=== PATIENT | male | born 1950 | race Hispanic/Latino ===

== ENCOUNTER 2020-04-02 15:12 | Outpatient (CLI) | payer OTHER ==
--- NOTE | 2020-04-02 16:17 | ULT ---
US Kidney Transplanted: 04/02/2020 3:13 PM CLINICAL HISTORY: Status post kidney transplant for kidney failure. STUDY: Renal and transplant renal ultrasound COMPARISON: None. FINDINGS: [place] Right kidney: Echogenicity: Increased. Masses/cysts: None. Hydronephrosis: None. Calcifications: None. Length: 8.2 cm [place] Left kidney: Echogenicity: Increased. Masses/cysts: None. Hydronephrosis: None. Calcifications: None. Length: 10.3 cm Transplant kidney in the pelvis: Echogenicity: Normal. Masses/cysts: None. Hydronephrosis: None. Calcifications: None. Length: 12.7 cm The resistive indices of the transplant kidney are normal. Peak systolic velocity in the transplant r enal artery is 38 cm/s. Limited visualization of the urinary bladder is unremarkable. IMPRESSION: 1. No significant abnormality of the transplant kidney 2. Echogenic [place] kidneys are secondary to chronic renal failure.
== END 2020-04-02 15:13 | disposition home or self-care (01) ==
LOC: BICULT 15:12
PROVIDERS: ATTEND Internal Medicine Nephrology
DX: I12.9 Hypertensive chronic kidney disease with stage 1 through stage 4 chronic kidney disease, or unspecified chronic kidney disease (principal); N18.30 Chronic kidney disease, stage 3 unspecified; R10.9 Unspecified abdominal pain
CPT/HCPCS: 76775

== ENCOUNTER 2020-06-22 15:39 | Outpatient (CLI) | payer OTHER ==
[2020-06-23 02:12] LABS: SARS-CoV-2 PCR by NAA Not Detected (NotDetected)
== END 2020-06-22 15:40 | disposition home or self-care (01) ==
LOC: LABBT 15:39
PROVIDERS: ATTEND Ophthalmology Retina Specialist
DX: Z01.812 Encounter for preprocedural laboratory examination (principal); H43.12 Vitreous hemorrhage, left eye; Z20.822 Contact with and (suspected) exposure to COVID-19
CPT/HCPCS: 87635; U0003; U0005

== ENCOUNTER 2020-06-25 05:47 | Day surgery (SDC) | payer OTHER ==
[2020-06-24 12:20] VITALS: BMI 27.4
[2020-06-25] MEDS ORDERED: Cyclopentolate 1% Opth Drop 2 ML BOT ONE (05:57)
[2020-06-25] MEDS ORDERED: Phenylephrine 2.5% Ophth Soln 5 ML BOT ONE (05:57)
[2020-06-25] MEDS ORDERED: Phenylephrine 2.5% Ophth Soln 5 ML BOT L EYE SCH (06:00)
[2020-06-25] MEDS ORDERED: EPINEPHrine 0.3 MG in Ophthalmic Irrigation Solution 500 ML IRR SCH (06:00)
[2020-06-25] MEDS ORDERED: Cyclopentolate 1% Opth Drop 2 ML BOT L EYE SCH (06:00)
[2020-06-25] MEDS ORDERED: Fentanyl 100 MCG/2 ML VIAL ONE (06:20)
[2020-06-25] MEDS ORDERED: Midazolam HCl 2 mg/2 ml Vial ONE (06:20)
[2020-06-25] MEDS ORDERED: CEFAZOLIN 1 GM VIAL ONE (07:04)
[2020-06-25] MEDS ORDERED: Bupivacaine PF 0.75% SDV 10 ML ONE (07:04)
[2020-06-25] MEDS ORDERED: Maxitrol 0.1% Opth Oint 3.5 GM TUBE ONE (07:04)
[2020-06-25] MEDS ORDERED: Lidocaine 4% PF 5 ML AMP ONE (07:04)
[2020-06-25] MEDS ORDERED: PROPOFOL 200 MG/20 ML VIAL ONE (07:04)
[2020-06-25] MEDS ORDERED: Lidocaine 1% PF 5 ML VIAL ONE (07:04)
[2020-06-25] MEDS ORDERED: Triamcinolone 40 MG/ML VIAL ONE (07:04)
== END 2020-06-25 09:15 | disposition home or self-care (01) ==
LOC: SDC 05:47
PROVIDERS: ATTEND Ophthalmology Retina Specialist
PROC: 08NF3ZZ Release Left Retina, Percutaneous Approach (ICD-10-PCS; principal; 2020-06-25)
PROC: 08T53ZZ Resection of Left Vitreous, Percutaneous Approach (ICD-10-PCS; principal; 2020-06-25)
DX: H43.12 Vitreous hemorrhage, left eye (principal); H35.372 Puckering of macula, left eye; E11.9 Type 2 diabetes mellitus without complications; Z79.4 Long term (current) use of insulin; Z79.82 Long term (current) use of aspirin; Z79.899 Other long term (current) drug therapy; Z94.0 Kidney transplant status
CPT/HCPCS: 36416; J0171; J0690; J2250; J2704; J3010; J3301; J3490

== ENCOUNTER 2023-07-11 17:22 | Inpatient (IN) | payer OTHER ==
[2023-07-11 17:54] VITALS: BMI 26.1
[2023-07-11] MEDS: Sodium Chloride 0.9% 1,000 ML IV SCH (18:33)
[2023-07-11] MEDS ORDERED: Dextrose 5% in Water 1,000 ML IV PRN (18:58)
[2023-07-11] MEDS ORDERED: Ondansetron ODT 4 MG TAB PO PRN (18:58)
[2023-07-11] MEDS ORDERED: Glucagon 1 MG/ML KIT IM PRN (18:58)
[2023-07-11] MEDS ORDERED: Ondansetron PF 4 MG/2 ML Vial IVP PRN (18:58)
[2023-07-11] MEDS ORDERED: Dextrose 50% Abboject 50 ML SYRINGE SLOW IVP PRN (18:58)
[2023-07-11] MEDS ORDERED: Vancomycin 1 GM in Premix 1 BAG IVPB SCH (21:00)
[2023-07-11] MEDS: Clindamycin/D5W 900 MG in Premix 1 BAG IVPB SCH (21:36)
[2023-07-11] MEDS: Acetaminophen 325 MG TAB PO PRN (21:39)
[2023-07-11] MEDS: HumaLOG 300 UNITS/3 ML VIAL SC PRN (22:16)
[2023-07-12] MEDS: Cefepime 2 GM in Sodium Chloride 0.9% 100 ML IVPB SCH (05:18)
[2023-07-12 06:16] LABS: #Basophils 0.03 10x3/uL (0.0-0.2); %Basophils 0.2 % (0.0-1.0); %Eosinophils 2.2 % (0.0-10.0); %Monocytes 8.5 % (0.0-10.0); %Neutrophils 71.6 % (42.0-75.0); Hematocrit 38.4 % (42.0-52.0); Hemoglobin 12.9 g/dL (14.0-18.0); Mean Corpuscular HGB CONC 33.6 g/dL (32.0-36.0); Mean Corpuscular Hemoglobin 29.9 pg (27.0-31.0); Mean Corpuscular Volume 88.9 fL (78.0-98.0); Mean Platelet Volume 10.8 fL (7.4-10.4); Platelet Count 152 10x3/uL (130-400); RBC Distribution Width 12.9 % (11.5-14.5); Red Blood Cell (RBC) Count 4.32 mill/uL (4.70-6.10)
[2023-07-12 06:28] LABS: Anion Gap 13 mmol/L (10-20); BUN (Urea Nitrogen) 31 mg/dL (8.4-25.7); Calc. Creatinine Clearance 74 mL/min (70-130); Calcium 9.1 mg/dL (7.8-10.44); Carbon Dioxide 20 mmol/L (23-31); Chloride 106 mmol/L (98-107); Estimated GFR 87; Glucose 266 mg/dL (80-115); Potassium 4.6 mmol/L (3.5-5.1); Sodium 134 mmol/L (136-145)
[2023-07-12 06:30] LABS: Vancomycin, Random 13.1 ug/mL (See Comment)
[2023-07-12] MEDS ORDERED: Vancomycin (BATCH) 1.25 GM in Premix 1 BAG IVPB SCH (16:00)
[2023-07-12] MEDS: Vancomycin (BATCH) 1.5 GM in Premix 1 BAG IVPB SCH (16:07)
[2023-07-12] MEDS: Losartan 25 MG TAB PO SCH (16:46)
[2023-07-12] MEDS: Hydrochlorothiazide 25 MG TAB PO SCH (16:46)
[2023-07-12] MEDS: Cefepime 1 GM in Sodium Chloride 0.9% 100 ML IVPB SCH (16:48)
[2023-07-12] MEDS: hydrALAZINE 20 MG/ML VIAL SLOW IVP SCH (20:43)
[2023-07-12] MEDS: Atorvastatin Calcium 20 MG TAB PO SCH (20:43)
[2023-07-12] MEDS: HumaLOG 300 UNITS/3 ML VIAL SC PRN (20:44)
[2023-07-12] MEDS ORDERED: Non-Formulary Item 1 EACH (Insulin Nph Hum/Reg Insulin Hm [Novolin 70-30 Flexpen] 100 UNI SC SCH (21:00)
[2023-07-13] MEDS: hydrALAZINE 20 MG/ML VIAL SLOW IVP SCH (04:30)
[2023-07-13 07:18] LABS: #Basophils 0.03 10x3/uL (0.0-0.2); %Basophils 0.3 % (0.0-1.0); %Eosinophils 3.8 % (0.0-10.0); %Lymphocytes 19.1 % (21.0-51.0); %Monocytes 9.6 % (0.0-10.0); %Neutrophils 66.8 % (42.0-75.0); Hematocrit 35.8 % (42.0-52.0); Hemoglobin 12.2 g/dL (14.0-18.0); Mean Corpuscular HGB CONC 34.1 g/dL (32.0-36.0); Mean Corpuscular Hemoglobin 30.7 pg (27.0-31.0); Mean Corpuscular Volume 90.2 fL (78.0-98.0); Mean Platelet Volume 10.6 fL (7.4-10.4); Platelet Count 162 10x3/uL (130-400); RBC Distribution Width 12.7 % (11.5-14.5); Red Blood Cell (RBC) Count 3.97 mill/uL (4.70-6.10)
[2023-07-13 07:56] LABS: Vancomycin, Random 13.2 ug/mL (See Comment)
[2023-07-13 08:00] LABS: Anion Gap 12 mmol/L (10-20); BUN (Urea Nitrogen) 34 mg/dL (8.4-25.7); Calc. Creatinine Clearance 67 mL/min (70-130); Calcium 8.6 mg/dL (7.8-10.44); Carbon Dioxide 17 mmol/L (23-31); Chloride 109 mmol/L (98-107); Estimated GFR 77; Glucose 304 mg/dL (80-115); Potassium 4.6 mmol/L (3.5-5.1); Sodium 133 mmol/L (136-145)
[2023-07-13] MEDS: Losartan 25 MG TAB PO SCH (08:42)
[2023-07-13] MEDS: Hydrochlorothiazide 25 MG TAB PO SCH (08:42)
[2023-07-13] MEDS: Aspirin Chewable 81 MG TAB PO SCH (08:42)
[2023-07-13] MEDS: HumuLIN 70/30 (300 UNITS/3 ML VIAL) SC SCH (16:08)
[2023-07-13] MEDS ORDERED: HumuLIN 70/30 (300 UNITS/3 ML VIAL) SC SCH (16:30)
[2023-07-13 18:06] LABS: Glucose POC Confirmation 360 mg/dL (83-110)
[2023-07-14] MEDS: hydrALAZINE 25 MG TAB PO SCH ×2 (00:52→00:59)
[2023-07-14 05:26] LABS: #Basophils 0.03 10x3/uL (0.0-0.2); %Basophils 0.3 % (0.0-1.0); %Eosinophils 5.5 % (0.0-10.0); %Lymphocytes 25.1 % (21.0-51.0); %Monocytes 8.5 % (0.0-10.0); %Neutrophils 60.2 % (42.0-75.0); Hematocrit 35.8 % (42.0-52.0); Hemoglobin 12.3 g/dL (14.0-18.0); Mean Corpuscular HGB CONC 34.4 g/dL (32.0-36.0); Mean Corpuscular Hemoglobin 30.8 pg (27.0-31.0); Mean Corpuscular Volume 89.5 fL (78.0-98.0); Mean Platelet Volume 10.6 fL (7.4-10.4); Platelet Count 173 10x3/uL (130-400); RBC Distribution Width 12.6 % (11.5-14.5)
[2023-07-14 05:41] LABS: Anion Gap 14 mmol/L (10-20); BUN (Urea Nitrogen) 34 mg/dL (8.4-25.7); Calc. Creatinine Clearance 82 mL/min (70-130); Calcium 9.1 mg/dL (7.8-10.44); Carbon Dioxide 18 mmol/L (23-31); Chloride 107 mmol/L (98-107); Estimated GFR 94; Glucose 153 mg/dL (80-115); Potassium 4.3 mmol/L (3.5-5.1); Sodium 135 mmol/L (136-145)
[2023-07-14] MEDS: HumuLIN 70/30 (300 UNITS/3 ML VIAL) SC SCH (08:19)
[2023-07-14 11:38] VITALS: BP 148/73; TEMP 98.5
[2023-07-14] MEDS: HumaLOG 300 UNITS/3 ML VIAL SC PRN (12:02)
[2023-07-14] MEDS ORDERED: Cefepime 2 GM in Sodium Chloride 0.9% 100 ML IVPB SCH (17:00)
== END 2023-07-14 15:07 | disposition home or self-care (01) | DRG 603 ==
LOC: T4-B 17:22 → INTOOBSV 17:22 → OBSVTOIN 07-12 15:33
PROVIDERS: ADMIT Internal Medicine; ATTEND Hospitalist
DX: L03.114 Cellulitis of left upper limb (principal); Z94.0 Kidney transplant status; E78.5 Hyperlipidemia, unspecified; E11.22 Type 2 diabetes mellitus with diabetic chronic kidney disease; I12.9 Hypertensive chronic kidney disease with stage 1 through stage 4 chronic kidney disease, or unspecified chronic kidney disease; N18.9 Chronic kidney disease, unspecified; Z66 Do not resuscitate; J02.9 Acute pharyngitis, unspecified; S61.532A Puncture wound without foreign body of left wrist, initial encounter; Z79.4 Long term (current) use of insulin; Z79.899 Other long term (current) drug therapy; Z79.82 Long term (current) use of aspirin
CPT/HCPCS: 36415; 36416; 80048; 80202; 85025; 96374; 96375; 96376; G0378; J0360; J0692; J1815; J3370; J3490; J7050

== ENCOUNTER 2024-09-10 01:11 | Inpatient (IN) | payer OTHER ==
[2024-09-10 02:09] VITALS: BMI 25.0
[2024-09-10] MEDS ORDERED: Ketorolac Tromethamine 30 MG (1 mL) VIAL IVP PRN (02:18)
[2024-09-10] MEDS ORDERED: Glucagon 1 MG/ML KIT IM PRN (02:45)
[2024-09-10] MEDS ORDERED: Dextrose 50% Abboject 50 ML SYRINGE SLOW IVP PRN (02:45)
[2024-09-10 03:24] LABS: Hematocrit 32.7 % (42.0-52.0); Hemoglobin 11.0 g/dL (14.0-18.0); Mean Corpuscular Hemoglobin 30.1 pg (27.0-31.0); Mean Corpuscular Volume 89.3 fL (78.0-98.0); Platelet Count 159 10x3/uL (130-400); Red Blood Cell (RBC) Count 3.66 mill/uL (4.70-6.10); White Blood Cell (WBC) Count 36.22 10x3/uL (4.8-10.8)
[2024-09-10 03:39] LABS: Anion Gap 15 mmol/L (10-20); BUN (Urea Nitrogen) 48 mg/dL (8.4-25.7); Calc. Creatinine Clearance 29 mL/min (70-130); Calcium 8.0 mg/dL (7.8-10.44); Carbon Dioxide 17 mmol/L (23-31); Chloride 106 mmol/L (98-107); Glucose 160 mg/dL (83-110); Potassium 3.9 mmol/L (3.5-5.1); Sodium 134 mmol/L (136-145)
[2024-09-10 03:44] LABS: Anisocytosis SLIGHT = 6-15 cells HPF (0-5); Platelet Adequacy Comment Platelets Normal; Polychromasia SLIGHT = 2-3 cells HPF (0-2)
[2024-09-10 07:21] LABS: ALT (SGPT) 54 U/L (Less than 45); AST (SGOT) 36 U/L (11-34); Albumin 1.9 g/dL (3.1-4.5); Alkaline Phosphatase 235 U/L (40-110); Bilirubin, Direct 1.3 mg/dL (0.1-0.3); Bilirubin, Total 1.8 mg/dL (0.3-1.2)
[2024-09-10] MEDS: Hydrocortisone Sod Succ/PF 100 mg/2 ml Vial IVP SCH (16:05)
[2024-09-10] MEDS: Acetaminophen 325 MG TAB PO PRN (20:17)
[2024-09-11 05:10] LABS: Anion Gap 18 mmol/L (10-20); BUN (Urea Nitrogen) 75 mg/dL (8.4-25.7); Calc. Creatinine Clearance 21 mL/min (70-130); Calcium 8.1 mg/dL (7.8-10.44); Carbon Dioxide 12 mmol/L (23-31); Chloride 108 mmol/L (98-107); Glucose 298 mg/dL (83-110); Potassium 4.6 mmol/L (3.5-5.1); Sodium 133 mmol/L (136-145)
[2024-09-11 05:15] LABS: ALT (SGPT) 56 U/L (Less than 45); AST (SGOT) 50 U/L (11-34); Albumin 1.9 g/dL (3.1-4.5); Alkaline Phosphatase 217 U/L (40-110); Bilirubin, Direct 1.0 mg/dL (0.1-0.3); Bilirubin, Total 1.4 mg/dL (0.3-1.2)
[2024-09-11 05:24] LABS: Hematocrit 37.1 % (42.0-52.0); Hemoglobin 11.7 g/dL (14.0-18.0); Mean Corpuscular Hemoglobin 29.5 pg (27.0-31.0); Mean Corpuscular Volume 93.7 fL (78.0-98.0); Platelet Count 200 10x3/uL (130-400); Red Blood Cell (RBC) Count 3.96 mill/uL (4.70-6.10); White Blood Cell (WBC) Count 30.39 10x3/uL (4.8-10.8)
[2024-09-11 05:56] LABS: Platelet Adequacy Comment Platelets Normal; Poikilocytosis SLIGHT = 6-15 cells HPF (0-5); Smudge Cells 1.0 %
[2024-09-11] MEDS ORDERED: Sodium Bicarbonate Tab 325 MG TAB PO SCH (09:00)
[2024-09-11] MEDS: Pantoprazole 40 MG VIAL IVP SCH (12:07)
[2024-09-11] MEDS ORDERED: Bupivacaine 0.25% HCL 30 ML VIAL ONE (13:03)
[2024-09-11] MEDS ORDERED: fentaNYL PF 100 MCG/2 ML SYRINGE ONE (13:10)
[2024-09-11] MEDS ORDERED: PROPOFOL 20 ML ONE (13:10)
[2024-09-11] MEDS ORDERED: Rocuronium Bromide 10 MG/ML (10ML VIAL) ONE (13:10)
[2024-09-11] MEDS ORDERED: CEFAZOLIN 2 GM VIAL ONE (14:21)
[2024-09-11] MEDS ORDERED: Ondansetron PF 4 MG/2 ML Vial ONE (14:49)
[2024-09-11] MEDS ORDERED: PHENYLEPHRINE-NS 100 MCG/ML 10 ML SYRINGE ONE (15:29)
[2024-09-11] MEDS ORDERED: SUGAMMADEX SODIUM 200 MG/2 ML VIAL ONE (16:08)
[2024-09-11] MEDS ORDERED: HYDROcodone/Acetaminophen 10/325 mg Tablet PO PRN (16:25)
[2024-09-11] MEDS ORDERED: Glucagon 1 MG/ML KIT IM PRN (16:25)
[2024-09-11] MEDS ORDERED: Dextrose 50% Abboject 50 ML SYRINGE SLOW IVP PRN (16:25)
[2024-09-11] MEDS ORDERED: Calcium Carbonate 500 MG ChewTAB PO PRN (16:25)
[2024-09-11] MEDS ORDERED: D5 1/2 NS w/20 mEq KCL 1,000 ML IV SCH (16:30)
[2024-09-11 19:10] LABS: Anion Gap 23 mmol/L (10-20); BUN (Urea Nitrogen) 86 mg/dL (8.4-25.7); Calc. Creatinine Clearance 17 mL/min (70-130); Calcium 8.0 mg/dL (7.8-10.44); Carbon Dioxide 10 mmol/L (23-31); Chloride 107 mmol/L (98-107); Glucose 369 mg/dL (83-110); Potassium 4.6 mmol/L (3.5-5.1); Sodium 135 mmol/L (136-145)
[2024-09-11] MEDS: CALCIUM GLUC 1 GM/NS 50 ML 1 GM in Premix 1 BAG IVPB SCH (20:02)
[2024-09-11] MEDS: Calcium Carbonate 500 MG ChewTAB PO SCH (20:03)
[2024-09-11] MEDS: Famotidine 20 MG TAB PO SCH (20:03)
[2024-09-11] MEDS: Ondansetron PF 4 MG/2 ML Vial IVP PRN (22:09)
[2024-09-12 04:36] LABS: Hematocrit 39.2 % (42.0-52.0); Hemoglobin 12.4 g/dL (14.0-18.0); Mean Corpuscular Hemoglobin 28.9 pg (27.0-31.0); Mean Corpuscular Volume 91.4 fL (78.0-98.0); Platelet Count 248 10x3/uL (130-400); Red Blood Cell (RBC) Count 4.29 mill/uL (4.70-6.10); White Blood Cell (WBC) Count 29.46 10x3/uL (4.8-10.8)
[2024-09-12 04:42] LABS: ALT (SGPT) 74 U/L (Less than 45); AST (SGOT) 114 U/L (11-34); Albumin 1.9 g/dL (3.1-4.5); Alkaline Phosphatase 198 U/L (40-110); Bilirubin, Direct 0.5 mg/dL (0.1-0.3); Bilirubin, Total 0.8 mg/dL (0.3-1.2)
[2024-09-12 04:49] LABS: Anion Gap 22 mmol/L (10-20); BUN (Urea Nitrogen) 91 mg/dL (8.4-25.7); Calc. Creatinine Clearance 15 mL/min (70-130); Calcium 8.1 mg/dL (7.8-10.44); Carbon Dioxide 10 mmol/L (23-31); Chloride 104 mmol/L (98-107); Glucose 485 mg/dL (83-110); Magnesium 2.2 mg/dL (1.6-2.6); Potassium 4.9 mmol/L (3.5-5.1); Sodium 131 mmol/L (136-145)
[2024-09-12 05:33] LABS: Platelet Adequacy Comment Platelets Normal
[2024-09-12] MEDS ORDERED: Pantoprazole 40 MG VIAL IVP SCH (09:00)
[2024-09-12] MEDS ORDERED: DEXTROSE 5% IV SCH (11:30)
[2024-09-12] MEDS ORDERED: SODIUM BICARBONATE IV SCH (11:30)
[2024-09-12] MEDS ORDERED: WATER IV SCH (11:30)
[2024-09-12 11:52] LABS: Anion Gap 18 mmol/L (10-20); BUN (Urea Nitrogen) 100 mg/dL (8.4-25.7); Calc. Creatinine Clearance 14 mL/min (70-130); Calcium 7.5 mg/dL (7.8-10.44); Carbon Dioxide 15 mmol/L (23-31); Chloride 100 mmol/L (98-107); Glucose 604 mg/dL (83-110); Potassium 4.3 mmol/L (3.5-5.1); Sodium 129 mmol/L (136-145)
[2024-09-12] MEDS: Sodium Bicarbonate Tab 325 MG TAB PO SCH ×2 (12:05→14:48)
[2024-09-12 12:51] VITALS: BP 161/82
[2024-09-12 15:28] LABS: Anion Gap 17 mmol/L (10-20); BUN (Urea Nitrogen) 92 mg/dL (8.4-25.7); Calc. Creatinine Clearance 14 mL/min (70-130); Calcium 7.7 mg/dL (7.8-10.44); Carbon Dioxide 15 mmol/L (23-31); Chloride 99 mmol/L (98-107); Glucose 649 mg/dL (83-110); Potassium 4.4 mmol/L (3.5-5.1); Sodium 127 mmol/L (136-145)
[2024-09-12] MEDS: Sodium Bicarb 50 MEQ/50 ML Abboject 8.4% SYRINGE IVP SCH (16:21)
[2024-09-12] MEDS: INSULIN REGULAR IN 0.9 % NACL 100 ML IVPB SCH (16:21)
[2024-09-12] MEDS: Sodium Bicarb 50 MEQ/50 ML Abboject 8.4% SYRINGE ONE (16:44)
[2024-09-12 17:35] LABS: Anion Gap 19 mmol/L (10-20); BUN (Urea Nitrogen) 100 mg/dL (8.4-25.7); Calc. Creatinine Clearance 14 mL/min (70-130); Calcium 7.5 mg/dL (7.8-10.44); Carbon Dioxide 15 mmol/L (23-31); Chloride 99 mmol/L (98-107); Glucose 641 mg/dL (83-110); Potassium 4.2 mmol/L (3.5-5.1); Sodium 129 mmol/L (136-145)
[2024-09-12] MEDS: Albumin 25% 25 GM (100 mL) BOT IVPB SCH (17:40)
[2024-09-12 21:30] LABS: Anion Gap 22 mmol/L (10-20); BUN (Urea Nitrogen) 84 mg/dL (8.4-25.7); Calc. Creatinine Clearance 16 mL/min (70-130); Calcium 7.1 mg/dL (7.8-10.44); Carbon Dioxide 14 mmol/L (23-31); Chloride 102 mmol/L (98-107); Glucose 398 mg/dL (83-110); Potassium 3.5 mmol/L (3.5-5.1); Sodium 134 mmol/L (136-145)
[2024-09-13 01:43] LABS: #Basophils 0.05 10x3/uL (0.0-0.2); #Eosinophils Less than 0.03 10x3/uL (0.0-0.7); #Monocytes 0.98 10x3/uL (0.11-0.59); #Neutrophils 21.51 10x3/uL (1.40-6.50); %Basophils 0.2 % (0.0-1.0); %Eosinophils 0.0 % (0.0-10.0); %Lymphocytes 8.1 % (21.0-51.0); %Monocytes 4.0 % (0.0-10.0); %Neutrophils 86.7 % (42.0-75.0); Hematocrit 34.5 % (42.0-52.0); Hemoglobin 11.5 g/dL (14.0-18.0); Mean Corpuscular Hemoglobin 29.6 pg (27.0-31.0); Mean Corpuscular Volume 88.7 fL (78.0-98.0); Platelet Count 177 10x3/uL (130-400); Red Blood Cell (RBC) Count 3.89 mill/uL (4.70-6.10); White Blood Cell (WBC) Count 24.81 10x3/uL (4.8-10.8)
[2024-09-13 02:43] LABS: ALT (SGPT) 41 U/L (Less than 45); AST (SGOT) 71 U/L (11-34); Albumin 2.2 g/dL (3.1-4.5); Alkaline Phosphatase 156 U/L (40-110); Anion Gap 18 mmol/L (10-20); BUN (Urea Nitrogen) 100 mg/dL (8.4-25.7); Bilirubin, Total 0.7 mg/dL (0.3-1.2); Calc. Creatinine Clearance 15 mL/min (70-130); Calcium 7.7 mg/dL (7.8-10.44); Carbon Dioxide 16 mmol/L (23-31); Chloride 102 mmol/L (98-107); Globulin 3.4 g/dL (2.4-3.5); Glucose 236 mg/dL (83-110); Potassium 3.4 mmol/L (3.5-5.1); Sodium 133 mmol/L (136-145)
[2024-09-13 05:46] LABS: Anion Gap 17 mmol/L (10-20); BUN (Urea Nitrogen) 102 mg/dL (8.4-25.7); Calc. Creatinine Clearance 15 mL/min (70-130); Calcium 7.8 mg/dL (7.8-10.44); Carbon Dioxide 18 mmol/L (23-31); Chloride 101 mmol/L (98-107); Glucose 142 mg/dL (83-110); Potassium 3.2 mmol/L (3.5-5.1); Sodium 133 mmol/L (136-145)
[2024-09-13] MEDS: hydrALAZINE 20 MG/ML VIAL SLOW IVP PRN (06:00)
[2024-09-13 07:26] VITALS: TEMP 97.5
[2024-09-13] MEDS: cefTRIAXone\\ROCEPHIN 2 GM in Sodium Chloride 0.9% 100 ML IVPB SCH (12:09)
[2024-09-13 12:21] LABS: Anion Gap 17 mmol/L (10-20); BUN (Urea Nitrogen) 99 mg/dL (8.4-25.7); Calc. Creatinine Clearance 15 mL/min (70-130); Calcium 7.7 mg/dL (7.8-10.44); Carbon Dioxide 17 mmol/L (23-31); Chloride 103 mmol/L (98-107); Glucose 130 mg/dL (83-110); Potassium 3.3 mmol/L (3.5-5.1); Sodium 134 mmol/L (136-145)
[2024-09-13 13:40] LABS: Anion Gap 16 mmol/L (10-20); BUN (Urea Nitrogen) 98 mg/dL (8.4-25.7); Calc. Creatinine Clearance 15 mL/min (70-130); Calcium 7.8 mg/dL (7.8-10.44); Carbon Dioxide 20 mmol/L (23-31); Chloride 103 mmol/L (98-107); Glucose 148 mg/dL (83-110); Potassium 3.3 mmol/L (3.5-5.1); Sodium 136 mmol/L (136-145)
[2024-09-13 14:09] LABS: HBSAB Concentration 38.14 mIU/mL; Hep B Core Total Ab NONREACTIVE (NonReactive); Hep B Core Total Index 0.08 S/CO (0-0.79); Hep B Surf Ag NONREACTIVE S/CO (NonReactive); Hep C IgG Ab NONREACTIVE S/CO (NonReactive); Hep C Index 0.11 S/CO (0-0.79)
[2024-09-13] MEDS: NIFEdipine XL 30 MG ER.TAB PO SCH (14:12)
[2024-09-13] MEDS: Metoprolol Succinate XL 50 MG ER.TAB PO SCH (14:12)
[2024-09-14] MEDS ORDERED: NIFEdipine XL 30 MG ER.TAB PO SCH (09:00)
[2024-09-14] MEDS ORDERED: Metoprolol Succinate XL 50 MG ER.TAB PO SCH (09:00)
== END 2024-09-13 15:30 | disposition short-term general hospital (02) | DRG 853 ==
LOC: OBS 02:04 → SURG B 09-11 17:49 → IMCU/EMU 09-12 15:59
PROVIDERS: ADMIT Student in an Organized Health Care Education/Training Program; ATTEND Hospitalist
PROC: 3E03329 Introduction of Other Anti-infective into Peripheral Vein, Percutaneous Approach (ICD-10-PCS; 2024-09-10)
PROC: 0FT44ZZ Resection of Gallbladder, Percutaneous Endoscopic Approach (ICD-10-PCS; principal; 2024-09-11)
PROC: BF53200 Other Imaging of Gallbladder and Bile Ducts using Fluorescing Agent, Indocyanine Green Dye, Intraoperative (ICD-10-PCS; 2024-09-11)
PROC: 3E033XZ Introduction of Vasopressor into Peripheral Vein, Percutaneous Approach (ICD-10-PCS; 2024-09-11)
PROC: 0D9670Z Drainage of Stomach with Drainage Device, Via Natural or Artificial Opening (ICD-10-PCS; 2024-09-11)
PROC: 30233J1 Transfusion of Nonautologous Serum Albumin into Peripheral Vein, Percutaneous Approach (ICD-10-PCS; 2024-09-12)
DX: A41.59 Other Gram-negative sepsis (principal); N17.0 Acute kidney failure with tubular necrosis; R65.21 Severe sepsis with septic shock; E87.20 Acidosis, unspecified; K81.0 Acute cholecystitis; N17.9 Acute kidney failure, unspecified; Z94.0 Kidney transplant status; D84.9 Immunodeficiency, unspecified; N18.5 Chronic kidney disease, stage 5; E78.5 Hyperlipidemia, unspecified; E11.22 Type 2 diabetes mellitus with diabetic chronic kidney disease; D63.1 Anemia in chronic kidney disease; I12.9 Hypertensive chronic kidney disease with stage 1 through stage 4 chronic kidney disease, or unspecified chronic kidney disease; G62.89 Other specified polyneuropathies; Z86.19 Personal history of other infectious and parasitic diseases; Z98.890 Other specified postprocedural states; Z79.899 Other long term (current) drug therapy
CPT/HCPCS: 36415; 36416; 71045; 74181; 76376; 76705; 78226; 80048; 80076; 80197; 82010; 82550; 83036; 83605; 83735; 85025; 86704; 86706; 86803; 87040; 87077; 87149; 87186; 87340; 88304; 94640; A4217; A9537; C1889; J0169; J0360; J0613; J0665; J0696; J1100; J1720; J1815; J2270; J2272; J2405; J2470; J2543; J2550; J2704; J7030; J7070; J7507; J7517; J7620; P9047; S2900